=== PATIENT | male | born 1985 | race Caucasian/White ===

== ENCOUNTER → 2023-09-07 11:09 | Outpatient (CLI) | payer OTHER, SELFPAY ==
--- NOTE | 2023-09-07 11:10 | DI.RAD.S_ITS ---
PROCEDURE: XR FINGER RT MIN 2V INDICATIONS: Right finger trauma TECHNIQUE: AP hand, 2 views of the 3rd finger(s) acquired. COMPARISON: None. FINDINGS: Bones: No fractures or dislocations. No suspicious bony lesions. Soft tissues: No suspicious soft tissue calcifications. There is a 4 mm linear hyperdensity projecting over the soft tissues volar to the 4th middle phalanx. IMPRESSION: 1. No acute osseous abnormalities. 2. 4 mm linear hyperdensity projecting over the soft tissues volar to the 4th middle phalanx, consistent with foreign body. Dictated by: Rey Smith M.D. on 09/07/2023 at 14:12 Approved by: Rey Smith M.D. on 09/07/2023 at 14:16
== END ==
LOC: RAD 11:10
PROVIDERS: Referring Provider Nurse Practitioner Family; Visit Provider Nurse Practitioner Family
DX: S61.219A Laceration without foreign body of unspecified finger without damage to nail, initial encounter (principal); X58.XXXA Exposure to other specified factors, initial encounter
CPT/HCPCS: 73140